=== PATIENT | female | born 1975 | race Caucasian/White ===

== ENCOUNTER 2019-06-15 21:15 | Inpatient (IN) | payer OTHER ==
[2019-06-15] VITALS (31 sets, daily range): BP systolic 113; BP diastolic 76; PULSE 92; TEMP 97.9; O2SAT 95–99
[~2019-06-15] VITALS: Ht 165.1 cm; Wt 114.8 kg
[2019-06-15] MEDS ORDERED: GLUCOPHAGE500 MG/TAB PO (21:25)
[2019-06-15] MEDS ORDERED: RANEXA 500MG T500 MG PO (21:26)
[2019-06-15] MEDS ORDERED: TOPROL XL 50MG50 MG PO (21:26)
[2019-06-15] MEDS ORDERED: BRILINTA90 MG PO (21:27)
[2019-06-15] MEDS ORDERED: TRULICITY0.75 MG/0. SQ (21:28)
[2019-06-15] MEDS ORDERED: ASPIRIN 81M81 MG/TA2 PO (21:28)
[2019-06-15] MEDS ORDERED: ZETIA 10MG TAB10 MG PO (21:29)
[2019-06-15] MEDS ORDERED: PRAVACHOL 40MG40 MG PO (21:29)
[2019-06-15] MEDS ORDERED: REPATHA SU140 MG/1 M SQ (21:29)
[2019-06-15 21:49] LABS: BASO % 0.5 % (0.0-2.0); EOS # 0.2 (0.0-0.7); EOS % 2.6 % (0-4.0); GRAN # 5.2 (1.4-6.5); GRAN % 61.5 % (42.2-75.2); HEMATOCRIT 41.2 % (37.0-47.0); HEMOGLOBIN 14.2 g/dl (12.5-16.0); LYMPH # 2.4 (1.2-3.4); LYMPH % 28.6 % (20.0-51.0); MEAN CELL VOLUME 93 fl (80.0-100.0); MEAN CORPUSCULAR HEMOGLOBIN 32 pg (27.0-31.0); MEAN CORPUSCULAR HGB CONC 35 g/dl (33.0-37.0); MEAN PLATELET VOLUME 11.1 fl (7.4-10.4); MONO # 0.5 (0.1-0.6); MONO % 6.4 % (1.7-9.3); PLATELET COUNT 236 K/mm3 (130-400); RED BLOOD COUNT 4.43 M/mm3 (4.10-5.30); REDCELL DISTRIBUTION WIDTH-CV 12.3 % (11.5-14.5)
[2019-06-15 21:51] LABS: PROTHROMBIN TIME 11.3 SECONDS (9.7-12.8)
[2019-06-15 21:56] LABS: ALANINE AMINOTRANSFERASE 43 U/L (4-34); ALBUMIN 4.5 gm/dL (3.5-5.0); ALKALINE PHOSPHATASE 84 U/L (50-136); ANION GAP 10 mmol/L (7-16); AST,SGOT 39 U/L (15-37); BILIRUBIN,TOTAL 0.3 mg/dL (0.0-1.0); BLOOD UREA NITROGEN 18 mg/dL (7-17); CALCIUM 9.8 mg/dL (8.4-10.2); CARBON DIOXIDE 25 mmol/L (22-30); CHLORIDE 102 mmol/L (98-107); CREATININE, serum 0.88 (0.52-1.25); GLUCOSE 138 mg/dL (74-106); LIPASE 262 U/L (23-300); POTASSIUM 4.4 mmol/L (3.4-5.0); SODIUM 137 mmol/L (137-145)
[2019-06-15 22:28] LABS: TROPONIN-I < 0.012 ng/mL (0.000-0.035)
--- NOTE | 2019-06-15 22:48 | NUR ---
Received report from QI Rasheed.
--- NOTE | 2019-06-15 23:02 | NUR ---
Patient arrives to IMCU room 16 via ED stretcher. She is able to transfer self into IMCU bed. She arrives with nitro infusing at 15 mcg/min; heparin infusing at 1000 units/hr; and NS hanging to gravity. She reports 1-2/10 chest pain; the ED nurse reports having given fentanyl prior to transfer to unit. Initial vitals within normal limits. Patient appears diaphoretic and pale, although she is warm and dry to touch. No skin issues noted. Deirdre notified of patient's arrival.
[2019-06-15] MEDS ORDERED: LOPRESSOR 550 MG/TAB PO (23:11)
[2019-06-16] VITALS (451 sets, daily range): BP systolic 101–135; BP diastolic 42–85; PULSE 67–103; TEMP 97.9–98.2; O2SAT 92–100
[2019-06-16 05:19] LABS: BASO % 0.5 % (0.0-2.0); EOS # 0.1 (0.0-0.7); EOS % 1.9 % (0-4.0); GRAN % 54.7 % (42.2-75.2); HEMATOCRIT 37.8 % (37.0-47.0); LYMPH # 2.7 (1.2-3.4); LYMPH % 36.3 % (20.0-51.0); MEAN CELL VOLUME 94 fl (80.0-100.0); MEAN CORPUSCULAR HEMOGLOBIN 32 pg (27.0-31.0); MEAN CORPUSCULAR HGB CONC 34 g/dl (33.0-37.0); MEAN PLATELET VOLUME 11.2 fl (7.4-10.4); MONO # 0.5 (0.1-0.6); MONO % 6.1 % (1.7-9.3); PLATELET COUNT 205 K/mm3 (130-400); RED BLOOD COUNT 4.02 M/mm3 (4.10-5.30); REDCELL DISTRIBUTION WIDTH-CV 12.5 % (11.5-14.5)
[2019-06-16 05:48] LABS: ALANINE AMINOTRANSFERASE 41 U/L (4-34); ALBUMIN 3.8 gm/dL (3.5-5.0); ALKALINE PHOSPHATASE 70 U/L (50-136); ANION GAP 7 mmol/L (7-16); AST,SGOT 39 U/L (15-37); BILIRUBIN,TOTAL 0.3 mg/dL (0.0-1.0); BLOOD UREA NITROGEN 15 mg/dL (7-17); CALCIUM 9.4 mg/dL (8.4-10.2); CARBON DIOXIDE 24 mmol/L (22-30); CHLORIDE 106 mmol/L (98-107); CREATININE, serum 0.76 (0.52-1.25); GLUCOSE 101 mg/dL (74-106); POTASSIUM 4.1 mmol/L (3.4-5.0); SODIUM 137 mmol/L (137-145)
[2019-06-16 05:55] LABS: TROPONIN-I < 0.012 ng/mL (0.000-0.035)
--- NOTE | 2019-06-16 09:57 | NUR ---
Pt left for lexiscan at this time.
--- NOTE | 2019-06-16 11:13 | NUR ---
MIRYAM to hold Nitro gtt until results of david scan are back per Dr. Latif.
--- NOTE | 2019-06-16 11:28 | NUR ---
Pt assessment complete. Pt back from david scan at this time, no chest pain at this time. Nitro drip off. Continues on heparin. AM medications administered. POC discussed with patient who will remain NPO until results are back. No needs at this time. Call light within reach.
--- NOTE | 2019-06-16 11:56 | NUR ---
COLE met with the patient to discuss discharge plan. 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 She reports independence with ADLs and does not have any DME. The patient's PCP is Dr. Ram from [facility] and she receives her medications at [facility]. She reports no difficulties obtaining her meds. The patient does not have advanced directives completed. She states that her next of kin is her mother, Desire Herrera (c.#[phone]/h.phone#[phone]). Desire lives in [place]. The patient plans to return back to her place in [place] upon discharge. SW to continue to follow as needed.
--- NOTE | 2019-06-16 16:44 | NUR ---
Remainder of air released from TR band, no bleeding noted. Will continue with discharge when patient is more awake.
--- NOTE | 2019-06-16 18:32 | NUR ---
Discharge paperwork and instructions reviewed with patient. All questions answered at this time. RUE restrictions discussed with patient who verbalizes understanding. Site to R radial has small amount of bruising, tender to palpation. Good cap refill. Bandaid placed to site. Bilateral AC iv's dc'd catheter tips intact. Pt walked out of facility at this time.
[2019-06-16 21:34] LABS: CHOLESTEROL RISK RATIO 4.2
== END 2019-06-16 18:34 | disposition home or self-care (01) | DRG 287 ==
LOC: COL.ER 21:15 → IMCU 22:07
PROVIDERS: Emergency Medicine; Nurse Practitioner Family; ADMIT Hospitalist
PROC: 4A023N6 Measurement of Cardiac Sampling and Pressure, Right Heart, Percutaneous Approach (ICD-10-PCS; principal; 2019-06-15)
PROC: B2111ZZ Fluoroscopy of Multiple Coronary Arteries using Low Osmolar Contrast (ICD-10-PCS; 2019-06-15)
DX: R07.89 Other chest pain (principal); I25.10 Atherosclerotic heart disease of native coronary artery without angina pectoris; E66.01 Morbid (severe) obesity due to excess calories; I10 Essential (primary) hypertension; E78.5 Hyperlipidemia, unspecified; E11.9 Type 2 diabetes mellitus without complications; Z79.82 Long term (current) use of aspirin; Z95.818 Presence of other cardiac implants and grafts; Z90.711 Acquired absence of uterus with remaining cervical stump; Z98.51 Tubal ligation status; Z79.84 Long term (current) use of oral hypoglycemic drugs; Z87.891 Personal history of nicotine dependence
CPT/HCPCS: 99223-AI; 99232-AI; 99239; A9500; J1644; J2250; J2270; J2405; J2785; J3010; J7030; Q9967